=== PATIENT | female | born 1970 | race Caucasian/White ===

== ENCOUNTER → 2018-02-12 10:13 | Outpatient (CLI) | payer BC, SELFPAY ==
[2018-02-12 10:49] LABS: Occult Blood,Stool Negative (Negative)
== END ==
PROVIDERS: PCP Family Medicine; Visit Provider Internal Medicine Gastroenterology
DX: D50.9 Iron deficiency anemia, unspecified (principal); K92.1 Melena
CPT/HCPCS: 82272; G0328